=== PATIENT | male | born 1975 | race Caucasian/White ===

== ENCOUNTER 2018-04-11 20:29 | Observation (INO) ==
[2018-04-12] MEDS ORDERED: Acetaminophen 500 MG Tablet PO PRN (02:53)
[2018-04-12] MEDS ORDERED: Acetaminophen 325 MG Tablet PO PRN (03:30)
--- NOTE | 2018-04-12 04:05 | P.HPIM ---
History of Present Illness Primary Care Physician: Yan Jameson DO History of Present Illness: 42-year-old male with a history of hypertension and CAD presented to the ED with complaints of chest pain. Patient states today he began to have substernal chest pain, pressure-like, constant,8/10, that radiated down his left ribs with associated shortness of breath. Patient states his pain was relieved by nitro, but since the nitro he does complain of pounding constant headache. Patient denies any nausea, vomiting, fever or chills. Patient has had cardiac stents placed in the past, last stent placed 2011 in [place]. Patient does not follow with a manufacturing design engineer. Review of Systems All other systems reviewed negative except as stated in HPI [facility] - History History Provided By: Patient - Medical History Medical History: Medical History (Last Updated 04/12/18 @ 03:59 by RONEY Boyce) CAD (coronary artery disease) Hypertension - Surgical History Surgical History: Surgical History (Last Updated 04/12/18 @ 03:59 by RONEY Boyce) History of cardiac cath - Family History Family History: Family History (Last Updated 04/12/18 @ 03:59 by RONEY Boyce) Other Heart disease - Tobacco History Second Hand Smoke Exposure: Yes Tobacco Use In Past 30 Days: Yes Smoking Status: Heavy tobacco smoker Tobacco Type: Cigarettes - Alcohol History How Often Do You Have a Drink Containing Alcohol: Never - Substance Use History Substance History: No History of Abuse Medications and Allergies Active Medications: Active Medications Acetaminophen (Tylenol) 650 mg PO Q4H PRN PRN Reason: Temp > 100.4 or headache Ondansetron HCl (Zofran Inj) 4 mg IV.PUSH Q6H PRN PRN Reason: NAUSEA OR VOMITING Allergies Allergy/AdvReac Type Severity Reaction Status Date / Time amoxicillin Allergy Severe Verified 06/01/17 21:48 Exam Vital signs: Vital Signs 04/12/18 03:44 Temperature 98.1 F Pulse Rate 64 Respiratory Rate 22 Blood Pressure 123/81 Pulse Oximetry 95 Intake & Output 04/11/18 04/11/18 04/12/18 06:59 18:59 06:59 Weight 131.088 kg Other: Date of Last Bowel Movement 04/11/18 Weight On Admission 131.088 kg Narrative: GENERAL: This is a well-nourished, well-developed patient, in no apparent distress. SKIN: Warm, dry, intact, no ecchymosis or open lesions EYES: Pupils equal round and reactive, no scleral edema or drainage CARDIOVASCULAR: Regular rate and rhythm without murmurs, gallops, or rubs. RESPIRATORY: Clear to auscultation. Breath sounds equal bilaterally. No wheezes , rales, or rhonchi. GASTROINTESTINAL: Abdomen soft, non-tender, nondistended. Normal active bowel sounds MUSCULOSKELETAL: Extremities without clubbing, cyanosis, or edema. NEURO: Alert & Oriented x4 to person, place, time, situation. Moves all ext x4 Caprini VTE Risk Assessment Caprini VTE Risk Assessment: Moderate/High Risk (score >= 2) Caprini Risk Assessment Model: Point Value = 1 Point Value = 2 Point Value = 3 Point Value = 5 Age 41-60 Minor surgery BMI > 25 kg/m2 Swollen legs Varicose veins or History of unexplained or recurrent spontaneous Oral contraceptives or hormone replacement Sepsis (< 1 month) Serious lung disease, including pneumonia (< 1 month) Abnormal pulmonary function Acute myocardial infarction Congestive heart failure (< 1 month) History of inflammatory bowel disease Medical patient at bed rest Age 61-74 Arthroscopic surgery Major open surgery (> 45 min) Laparoscopic surgery (> 45 min) Malignancy Confined to bed (> 72 hours) Immobilizing plaster cast Central venous access Age >= 75 History of VTE Family history of VTE Factor V Leiden Prothrombin [id number] Lupus anticoagulant Anticardiolipin antibodies Elevated serum homocysteine Heparin-induced thrombocytopenia Other congenital or acquired thrombophilia Stroke (< 1 month) Elective arthroplasty Hip, pelvis, or leg fracture Acute spinal cord injury (< 1 month) Prophylaxis Regimen: Total Risk Factor Score Risk Level Prophylaxis Regimen 0-1 Low Early ambulation 2 Moderate Order ONE of the following: *Sequential Compression Device (SCD) *Heparin 5000 units SQ BID 3-4 Higher Order ONE of the following medications: *Heparin 5000 units SQ TID *Enoxaparin/Lovenox 40 mg SQ daily (WT < 150 kg, CrCl > 30 mL/min) *Enoxaparin/Lovenox 30 mg SQ daily (WT < 150 kg, CrCl > 10-29 mL/min) *Enoxaparin/Lovenox 30 mg SQ BID (WT < 150 kg, CrCl > 30 mL/min) AND/OR *Sequential Compression Device (SCD) 5 or more Highest Order ONE of the following medications: *Heparin 5000 units SQ TID (Preferred with Epidurals) *Enoxaparin/Lovenox 40 mg SQ daily (WT < 150 kg, CrCl > 30 mL/min) *Enoxaparin/Lovenox 30 mg SQ daily (WT < 150 kg, CrCl > 10-29 mL/min) *Enoxaparin/Lovenox 30 mg SQ BID (WT < 150 kg, CrCl > 30 mL/min) AND *Sequential Compression Device (SCD) Assessment and Plan - Plan 42-year-old male with a history of hypertension and CAD presented to the ED with complaints of chest pain, Chest pain, rule out ACS Troponin .02, EKG reviewed and shows sinus rhythm with no ST elevation -Serial troponin and EKGs -Nitropaste -N.p.o., Lexiscan ordered for a.m. Hypertension, chronic -Resume home medications once verified from spouse Tobacco abuse -Encouraged to quit, tobacco cessation DVT prophylaxis: SCDs Discussed Condition With: Patient and RN H&P: Quality - VTE Deep Vein Thrombosis/Pulmonary Embolism Present on Admission: No
[2018-04-12 04:26] LABS: Creatine Kinase 81 U/L (39-308)
[2018-04-12 07:12] LABS: Baso % (Auto) 0.4 % (0.0-2.0); Eos # (Auto) 0.2 th/mm3 (0.0-0.4); Eos % (Auto) 2.2 % (0.0-4.0); Hematocrit 45.6 % (39.0-51.0); Hemoglobin 15.3 gm/dL (13.0-17.0); Lymph % (Auto) 35.6 % (9.0-44.0); Mean Corpuscular HGB Conc 33.4 % (32.0-36.0); Mean Corpuscular Hemoglobin 30.7 pg (27.0-34.0); Mean Corpuscular Volume 91.8 fL (80.0-100.0); Mean Platelet Volume 9.4 fL (7.0-11.0); Mono # (Auto) 0.5 th/mm3 (0.0-0.9); Mono % (Auto) 6.3 % (0.0-8.0); Neut # (Auto) 4.7 th/mm3 (1.8-7.7); Neut % (Auto) 55.5 % (16.0-70.0); Platelet Count 136 th/mm3 (150-450); Red Blood Count 4.98 mil/mm3 (4.50-5.90); Red Cell Distribution Width 13.2 % (11.6-17.2); White Blood Count 8.5 th/mm3 (4.0-11.0)
[2018-04-12 07:32] LABS: Anion Gap 10 meq/L (5-15); Calcium 8.5 mg/dL (8.5-10.1); Carbon Dioxide 24.7 meq/L (21.0-32.0); Chloride 106 meq/L (98-107); Glomerular Filtration Rate 79 mL/min (>89); Glucose,Random 103 mg/dL (74-106); Potassium 3.9 meq/L (3.5-5.1); Sodium 141 meq/L (136-145)
[2018-04-12 07:35] LABS: Blood Urea Nitrogen 17 mg/dL (7-18)
[2018-04-12 07:41] LABS: Creatine Kinase 77 U/L (39-308)
[2018-04-12] MEDS ORDERED: Temazepam 15 MG Capsule PO PRN (11:43)
[2018-04-12] MEDS ORDERED: Sertraline 100 MG Tablet PO SCH (11:45)
[2018-04-12] MEDS ORDERED: Meloxicam 15 MG Tablet PO SCH (11:45)
[2018-04-12] MEDS ORDERED: Metoprolol Tartrate 50 MG Tablet PO SCH (11:45)
[2018-04-12] MEDS ORDERED: Lisinopril 10 MG Tablet PO SCH (11:45)
[2018-04-12] MEDS ORDERED: Gabapentin 300 MG Capsule PO SCH (13:00)
[2018-04-12] MEDS ORDERED: Regadenoson Inj 0.4 MG/5 ML Syringe IV.PUSH ONE (14:06)
[2018-04-12 14:28] LABS: Chol/HDL Ratio 7.47 Ratio; HDL Cholesterol 24.2 mg/dL (40.0-60.0)
[2018-04-12] MEDS ORDERED: Citalopram 20 MG Tablet PO SCH (15:30)
--- NOTE | 2018-04-12 15:42 | NM ---
EXAM DATE: 04/12/2018 2:55 PM EDT AGE/SEX: 42 years / Male INDICATIONS:Angina. Coronary artery disease Substernal chest pain. CLINICAL DATA: This is the patient's initial encounter. Patient reports that signs and symptoms have been present for 1 day and indicates a pain score of 8/10. MEDICAL/SURGICAL HISTORY: Hypertension. Coronary artery stent. COMPARISON: No prior exams available for comparison. DOSE: 11 mCi Tc 99m Myoview at rest 35 mCi [id number] at stress 0.4 mg Lexiscan STRESS SYMPTOMS: Lightheaded. EJECTION FRACTION: 58 % TECHNIQUE: The patient underwent pharmacologic stress with infusion of prescribed dose. Continuous ECG tracing was monitored during stress. Gated SPECT imaging was performed after stress and conventi onal SPECT imaging was performed at rest. The examination was performed on a SPECT/CT scanner, both attenuation and non-corrected datasets were reviewed. FINDINGS: Distribution: The maximum perfused segment at stress is in the inferior wall. Perfusion Study: The pattern of perfusion at stress is within normal limits. Gated Study: There are intact wall motion and wall thickening without hypokinetic or dyskinetic segm ents. The ejection fraction is calculated at 58%. RISK CATEGORY: Low (<1% Annual Motality Rate) CONCLUSION: Unremarkable myocardial perfusion. Electronically signed by: Phani Jauregui MD 04/12/2018 3:41 PM EDT
--- NOTE | 2018-04-12 15:58 | P.PNIM ---
Subjective Interval history: 42-year-old male with a history of hypertension and CAD presented to the ED with complaints of chest pain. Patient states today he began to have substernal chest pain, pressure-like, constant,/10, that radiated down his left ribs with associated shortness of breath. Patient states his pain was relieved by nitro, but since the nitro he does complain of pounding constant headache. Patient denies any nausea, vomiting, fever or chills. Patient has had cardiac stents placed in the past, last stent placed 2011 in [place]. Patient does not follow with a material control specialist. 04-12 HAD LEXISCAN TEST WHICH IS NORMAL CAN DC TO HOME TODAY FOLLOW UP WITH PCP Physical Exam Vital signs: Vital Signs 04/12/18 03:44 04/12/18 08:00 04/12/18 09:00 Temperature 98.1 F 97.4 F L Pulse Rate 64 62 66 Respiratory Rate 22 18 Blood Pressure 123/81 145/87 H Pulse Oximetry 95 95 04/12/18 11:59 Temperature 98.0 F Pulse Rate 53 L Respiratory Rate 20 Blood Pressure 154/82 H Pulse Oximetry 96 Intake & Output 04/11/18 04/12/18 04/12/18 18:59 06:59 18:59 Weight 131.088 kg Other: # Voids 1 Date of Last Bowel Movement 04/11/18 04/11/18 Weight On Admission 131.088 kg Narrative: GENERAL: This is a well-nourished, well-developed patient, in no apparent distress. SKIN: Warm, dry, intact, no ecchymosis or open lesions EYES: Pupils equal round and reactive, no scleral edema or drainage CARDIOVASCULAR: Regular rate and rhythm without murmurs, gallops, or rubs. RESPIRATORY: Clear to auscultation. Breath sounds equal bilaterally. No wheezes , rales, or rhonchi. GASTROINTESTINAL: Abdomen soft, non-tender, nondistended. Normal active bowel sounds MUSCULOSKELETAL: Extremities without clubbing, cyanosis, or edema. NEURO: Alert & Oriented x4 to person, place, time, situation. Moves all ext x4 Results - Labs CBC & Chem 7: 04/12/18 05:30 04/12/18 05:30 Laboratory Results - last 24 hr 04/12/18 04/12/18 04/12/18 03:00 05:30 05:30 WBC 8.5 RBC 4.98 Hgb 15.3 Hct 45.6 MCV 91.8 MCH 30.7 MCHC 33.4 RDW 13.2 Plt Count 136 L MPV 9.4 Neut % (Auto) 55.5 Lymph % (Auto) 35.6 [place] % (Auto) 6.3 Eos % (Auto) 2.2 Baso % (Auto) 0.4 Neut # (Auto) 4.7 Lymph # (Auto) 3.0 [place] # (Auto) 0.5 Eos # (Auto) 0.2 Baso # (Auto) 0.0 WBC Differential . Differential Comment Auto diff final Sodium 141 Potassium 3.9 Chloride 106 Carbon Dioxide 24.7 Anion Gap 10 BUN 17 Creatinine 1.03 Estimated GFR 79 L Random Glucose 103 Calcium 8.5 Total Creatine Kinase 81 77 Troponin I Less than 0.02 L Less than 0.02 L Triglycerides Cholesterol LDL Cholesterol, Calc HDL Cholesterol Cholesterol/HDL Ratio 04/12/18 05:30 WBC RBC Hgb Hct MCV MCH MCHC RDW Plt Count MPV Neut % (Auto) Lymph % (Auto) [place] % (Auto) Eos % (Auto) Baso % (Auto) Neut # (Auto) Lymph # (Auto) [place] # (Auto) Eos # (Auto) Baso # (Auto) WBC Differential Differential Comment Sodium Potassium Chloride Carbon Dioxide Anion Gap BUN Creatinine Estimated GFR Random Glucose Calcium Total Creatine Kinase Troponin I Triglycerides 424 H Cholesterol 181 LDL Cholesterol, Calc HDL Cholesterol 24.2 L Cholesterol/HDL Ratio 7.47 - Imaging Impressions Myocardial Perfusion Scan Nuc Med 04/12/18 00:00 CONCLUSION: Unremarkable myocardial perfusion. - Procedures NONE Assessment and Plan - Plan 42-year-old male with a history of hypertension and CAD presented to the ED with complaints of chest pain, Chest pain, rule out ACS Troponin .02, EKG reviewed and shows sinus rhythm with no ST elevation -Serial troponin and EKGs -Nitropaste -N.p.o., Lexiscan ordered for a.m. CLEARED FOR DC NEGATIVE STRESS TEST DC TO HOME Hypertension, chronic -Resume home medications once verified from spouse PSYCHIATRIC DISORDER RESUME HOME MEDS Tobacco abuse -Encouraged to quit, tobacco cessation DVT prophylaxis: SCDs DC TO HOME TODAY SMOKING CESSATION Code Status: FULL CODE Discussed Condition With: RN AND PT AND CM Discharge Planning: DC TO HOME TODAY
[2018-04-12 16:03] VITALS: BP 147/86; PULSE 59; RESP 18; TEMP 97.6; O2SAT 93
--- NOTE | 2018-04-12 16:11 | P.DS ---
Date of admission: 04/12/18 02:45 Primary care physician: Yan Jameson DO Attending physician on discharge: Allen Jose Anticipated date of discharge: 04/12/18 Brief History from admission: 42-year-old male with a history of hypertension and CAD presented to the ED with complaints of chest pain. Patient states today he began to have substernal chest pain, pressure-like, constant,8/10, that radiated down his left ribs with associated shortness of breath. Patient states his pain was relieved by nitro, but since the nitro he does complain of pounding constant headache. Patient denies any nausea, vomiting, fever or chills. Patient has had cardiac stents placed in the past, last stent placed 2011 in [place]. Patient does not follow with a endoscopy support specialist. DS: Diagnosis - Discharge Diagnosis (1) Tobacco abuse Status: Chronic (2) CAD (coronary artery disease) Status: Chronic (3) Depression Status: Chronic (4) Anxiety Status: Chronic (5) Chest pain Status: Resolved DS: Summary Hospital Course: 42-year-old male with a history of hypertension and CAD presented to the ED with complaints of chest pain. Patient states today he began to have substernal chest pain, pressure-like, constant,8/10, that radiated down his left ribs with associated shortness of breath. Patient states his pain was relieved by nitro, but since the nitro he does complain of pounding constant headache. Patient denies any nausea, vomiting, fever or chills. Patient has had cardiac stents placed in the past, last stent placed 2011 in [place]. Patient does not follow with a endoscopy support specialist. 04-12 HAD LEXISCAN TEST WHICH IS NORMAL CAN DC TO HOME TODAY FOLLOW UP WITH PCP - Time Spent with Patient Total time spent providing and/or coordinating discharge services: Greater than 30 minutes - Quality: VTE Deep Vein Thrombosis/Pulmonary Embolism Present on Admission: No Exam Vital signs: Vital Signs 04/12/18 03:44 04/12/18 08:00 04/12/18 09:00 Temperature 98.1 F 97.4 F L Pulse Rate 64 62 66 Respiratory Rate 22 18 Blood Pressure 123/81 145/87 H Pulse Oximetry 95 95 04/12/18 11:59 Temperature 98.0 F Pulse Rate 53 L Respiratory Rate 20 Blood Pressure 154/82 H Pulse Oximetry 96 Intake & Output 04/11/18 04/12/18 04/12/18 18:59 06:59 18:59 Weight 131.088 kg Other: # Voids 1 Date of Last Bowel Movement 04/11/18 04/11/18 Weight On Admission 131.088 kg Narrative: GENERAL: This is a well-nourished, well-developed patient, in no apparent distress. SKIN: Warm, dry, intact, no ecchymosis or open lesions EYES: Pupils equal round and reactive, no scleral edema or drainage CARDIOVASCULAR: Regular rate and rhythm without murmurs, gallops, or rubs. RESPIRATORY: Clear to auscultation. Breath sounds equal bilaterally. No wheezes , rales, or rhonchi. GASTROINTESTINAL: Abdomen soft, non-tender, nondistended. Normal active bowel sounds MUSCULOSKELETAL: Extremities without clubbing, cyanosis, or edema. NEURO: Alert & Oriented x4 to person, place, time, situation. Moves all ext x4 Results Procedures completed during hospitalization: NONE Completed studies during hospitalization: Myocardial Perfusion Scan Nuc Med 04/12/18 00:00 CONCLUSION: Unremarkable myocardial perfusion. Labs on day of discharge: Labs from last 24 hours 04/12/18 04/12/18 04/12/18 05:30 05:30 05:30 WBC 8.5 RBC 4.98 Hgb 15.3 Hct 45.6 MCV 91.8 MCH 30.7 MCHC 33.4 RDW 13.2 Plt Count 136 L MPV 9.4 Neut % (Auto) 55.5 Lymph % (Auto) 35.6 [place] % (Auto) 6.3 Eos % (Auto) 2.2 Baso % (Auto) 0.4 Neut # (Auto) 4.7 Lymph # (Auto) 3.0 [place] # (Auto) 0.5 Eos # (Auto) 0.2 Baso # (Auto) 0.0 WBC Differential . Differential Comment Auto diff final Sodium 141 Potassium 3.9 Chloride 106 Carbon Dioxide 24.7 Anion Gap 10 BUN 17 Creatinine 1.03 Estimated GFR 79 L Random Glucose 103 Calcium 8.5 Total Creatine Kinase 77 Troponin I Less than 0.02 L Triglycerides 424 H Cholesterol 181 LDL Cholesterol, Calc HDL Cholesterol 24.2 L Cholesterol/HDL Ratio 7.47 04/12/18 03:00 WBC RBC Hgb Hct MCV MCH MCHC RDW Plt Count MPV Neut % (Auto) Lymph % (Auto) [place] % (Auto) Eos % (Auto) Baso % (Auto) Neut # (Auto) Lymph # (Auto) [place] # (Auto) Eos # (Auto) Baso # (Auto) WBC Differential Differential Comment Sodium Potassium Chloride Carbon Dioxide Anion Gap BUN Creatinine Estimated GFR Random Glucose Calcium Total Creatine Kinase 81 Troponin I Less than 0.02 L Triglycerides Cholesterol LDL Cholesterol, Calc HDL Cholesterol Cholesterol/HDL Ratio - Impressions ITS Impressions Myocardial Perfusion Scan Nuc Med 04/12/18 00:00 CONCLUSION: Unremarkable myocardial perfusion. Discharge Plan - Discharge Disposition Patient Disposition: Discharge Home - Discharge Condition Condition: Good - Discharge Order Discharge Orders: Discharge Order (Routine); Ordered 04/12/18 Ordered By: Allen Jose - Discharge Details Anticipated Discharge Date: 04/12/18 Discharge Comment: DC TO HOME TODAY - Physicians Team Primary Care Provider: Yan Jameson Attending Provider: Allen Jose - Rxs /Orders / Referrals /Forms Prescriptions: New nicotine [Nicoderm CQ] 14 mg/24 hr Patch 24 Hour 1 patch TRANSDERMAL Q24H Qty: 30 RF: 0 Continue aspirin [Aspir-81] 81 mg Tablet,Delayed Release (Dr/Ec) 81 mg PO DAILY cetirizine 10 mg Tablet 10 mg PO DAILY citalopram [Celexa] 20 mg Tablet 20 mg PO DAILY gabapentin 600 mg Tablet 600 mg PO TID lisinopril 10 mg Tablet 10 mg PO DAILY meloxicam 15 mg Tablet 15 mg PO DAILY metoprolol tartrate 50 mg Tablet 50 mg PO DAILY simvastatin 10 mg Tablet 10 mg PO QPM temazepam 15 mg Capsule 15 HS Discontinued sertraline 100 mg Tablet 100 mg PO DAILY Referrals: Yan Jameson, [Primary Care Provider] - See Instructions (2 TO 3 DAYS)
--- NOTE | 2018-04-13 21:59 | ECG ---
Date Performed: 04/12/2018 Time Performed: 03:46:55 PTAGE: 42 years EKG: Sinus rhythm LOW QRS VOLTAGE IN PRECORDIAL LEADS NONSPECIFIC T-WAVE ABNORMALITY ABNORMAL ECG NO PREVIOUS TRACING DOCTOR: Huber Abbott Interpretating Date/Time 04/13/2018 21:57:25
== END 2018-04-12 17:31 | disposition home or self-care (01) ==
LOC: NEPGCP 04-12 02:35 → NEDDLT 04-12 02:35
PROVIDERS: ADMIT Hospitalist; ATTEND Hospitalist